=== PATIENT | male | born 1955 ===

== ENCOUNTER 2022-10-20 05:17 | Day surgery (SDC) | payer MEDICARE, OTHER ==
[2022-10-20] MEDS ORDERED: Propofol 200 MG/20 ML SDV IV ONE (05:18)
[2022-10-20] MEDS ORDERED: Midazolam 1 MG/ML 2 ML SDV IV ONE (05:18)
[2022-10-20] MEDS ORDERED: ePHEDrine 50 MG/ML SDV IV ONE (05:18)
[2022-10-20] MEDS ORDERED: fentaNYL 100 MCG/2 ML SDV IV ONE (05:18)
[2022-10-20] MEDS ORDERED: Dextrose 5%-0.45% NaCl 1,000 ML IV SCH (06:00)
[2022-10-20] MEDS ORDERED: fentaNYL 100 MCG/2 ML SDV ONE (07:07)
[2022-10-20] MEDS ORDERED: Propofol 200 MG/20 ML SDV ONE (07:07)
[2022-10-20] MEDS ORDERED: Midazolam 1 MG/ML 2 ML SDV ONE (07:07)
== END 2022-10-20 09:55 | disposition home or self-care (01) ==
LOC: DL.ENDO 05:17
PROVIDERS: ATTEND Internal Medicine Gastroenterology
DX: K44.9 Diaphragmatic hernia without obstruction or gangrene (principal); D50.9 Iron deficiency anemia, unspecified; K50.90 Crohn's disease, unspecified, without complications; I10 Essential (primary) hypertension; E78.1 Pure hyperglyceridemia; E11.9 Type 2 diabetes mellitus without complications; K21.9 Gastro-esophageal reflux disease without esophagitis; E78.00 Pure hypercholesterolemia, unspecified; Z88.0 Allergy status to penicillin; Z79.899 Other long term (current) drug therapy; Z79.84 Long term (current) use of oral hypoglycemic drugs; Z87.891 Personal history of nicotine dependence; Z86.16 Personal history of COVID-19
CPT/HCPCS: 00731; 87077; 88305; J2250; J2704; J3010; J7042; J3490

== ENCOUNTER → 2022-10-23 | Day surgery (SDC) | payer MEDICARE, OTHER ==
[~2022-10-23] MED LIST: Dexmedetomidine 200 MCG/2 ML SDV ONE; Dextrose 5%-0.45% NaCl 1,000 ML IV SCH; Lactated Ringers 1,000 ML IV SCH; Midazolam 1 MG/ML 2 ML SDV IV ONE; Midazolam 1 MG/ML 2 ML SDV ONE; Propofol 200 MG/20 ML SDV IV ONE; Propofol 200 MG/20 ML SDV ONE; Sodium Chloride 0.9% 10 ML Syringe FLUSH PRN; Sodium Chloride 0.9% 10 ML Syringe FLUSH SCH; fentaNYL 100 MCG/2 ML SDV IVPUSH ONE; fentaNYL 100 MCG/2 ML SDV ONE
== END | disposition home or self-care (01) ==
LOC: DL.ENDO 06:17
PROVIDERS: ATTEND Internal Medicine Gastroenterology
DX: K50.90 Crohn's disease, unspecified, without complications (principal); D50.9 Iron deficiency anemia, unspecified; I10 Essential (primary) hypertension; E78.1 Pure hyperglyceridemia; E11.9 Type 2 diabetes mellitus without complications; K21.9 Gastro-esophageal reflux disease without esophagitis; Z87.891 Personal history of nicotine dependence; Z88.0 Allergy status to penicillin; Z79.899 Other long term (current) drug therapy; Z79.84 Long term (current) use of oral hypoglycemic drugs
CPT/HCPCS: 00811; 88305; J2250; J2704; J3010; J7042; J7120

== ENCOUNTER 2023-12-16 05:30 | Day surgery (SDC) | payer MEDICARE, OTHER ==
[2023-12-16] MEDS ORDERED: fentaNYL 100 MCG/2 ML SDV IV ONE (05:31)
[2023-12-16] MEDS ORDERED: Midazolam 1 MG/ML 2 ML SDV IV ONE (05:31)
[2023-12-16] MEDS: Dextrose 5%-0.45% NaCl 1,000 ML IV SCH (06:06)
[2023-12-16] MEDS ORDERED: Midazolam 1 MG/ML 2 ML SDV ONE (06:18)
[2023-12-16] MEDS ORDERED: fentaNYL 100 MCG/2 ML SDV ONE (06:18)
[2023-12-16] MEDS: fentaNYL 100 MCG/2 ML SDV IV ONE ×2 (07:14→07:15)
[2023-12-16] MEDS: Midazolam 1 MG/ML 2 ML SDV IV ONE ×6 (07:15→07:24)
== END 2023-12-16 08:40 | disposition home or self-care (01) ==
LOC: DL.ENDO 05:30
PROVIDERS: ATTEND Internal Medicine Gastroenterology
DX: K50.80 Crohn's disease of both small and large intestine without complications (principal)
CPT/HCPCS: 45380; 88305; J2250; J3010; J7799

== ENCOUNTER 2024-03-25 12:09 | Emergency (ER) | payer MEDICARE, OTHER ==
[2024-03-25] MEDS: Lidocaine 1% 5 ML VIAL INJECT ONE (13:03)
[2024-03-25] MEDS: Lidocaine 1% 5 ML VIAL ONE (13:07)
[2024-03-25] MEDS: Bacitracin Oint 1 GM U/D Packet TOP ONE (13:07)
[2024-03-25] MEDS: Diphtheria,Pertussis(Acell),Tetanus Vaccine 0.5 ML Syringe IM ONE (13:23)
[2024-03-25] MEDS ORDERED: Take Home: Cephalexin 500 MG Cap, 6 Cap Pack PO ONE (14:03)
[2024-03-25] MEDS ORDERED: Cephalexin 500 MG Cap PO ONE (14:03)
== END 2024-03-25 14:40 | disposition home or self-care (01) ==
LOC: DL.ED 12:09
DX: S61.210A Laceration without foreign body of right index finger without damage to nail, initial encounter (principal); I10 Essential (primary) hypertension; E78.00 Pure hypercholesterolemia, unspecified; E11.9 Type 2 diabetes mellitus without complications; F17.210 Nicotine dependence, cigarettes, uncomplicated; Z88.0 Allergy status to penicillin; Z79.84 Long term (current) use of oral hypoglycemic drugs; Z79.899 Other long term (current) drug therapy; W23.0XXA Caught, crushed, jammed, or pinched between moving objects, initial encounter; Z23 Encounter for immunization
CPT/HCPCS: 12002; 73140; 90471; 90715; 99283; A9270; 12004; J3490

== ENCOUNTER 2025-02-20 05:48 | Day surgery (SDC) | payer MEDICARE, OTHER ==
[2025-02-20] MEDS ORDERED: Propofol 200 MG/20 ML SDV IV ONE (05:49)
[2025-02-20] MEDS ORDERED: Lactated Ringers 1,000 ML IV ONE (05:49)
[2025-02-20] MEDS: Lactated Ringers 1,000 ML IV SCH (06:25)
[2025-02-20] MEDS ORDERED: Propofol 200 MG/20 ML SDV ONE ×2 (10:04)
== END 2025-02-20 08:23 | disposition home or self-care (01) ==
LOC: DL.ENDO 05:48
PROVIDERS: ATTEND Internal Medicine Gastroenterology
DX: K50.111 Crohn's disease of large intestine with rectal bleeding (principal); K21.9 Gastro-esophageal reflux disease without esophagitis; E11.9 Type 2 diabetes mellitus without complications; I10 Essential (primary) hypertension; F17.210 Nicotine dependence, cigarettes, uncomplicated; Z79.899 Other long term (current) drug therapy
CPT/HCPCS: 00811; 45380; 88305; 99100; J2704; J7120; S5010